=== PATIENT | male | born 1985 | race Caucasian/White ===

== ENCOUNTER 2025-01-28 15:49 | Outpatient (AMB) | payer OTHER, SELFPAY ==
--- NOTE | 2025-01-28 15:52 | A.OFFPC_ITS ---
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: No Accompanied by: Self / Same As Patient Allergies acetaminophen (From Tylenol PM) Allergy (Mild, Verified 01/28/25 16:08) heart race diphenhydramine (From Tylenol PM) Allergy (Mild, Verified 01/28/25 16:08) heart race Tobacco use date assessed: 01/28/25 Dental Screening Dental Screen Date: 01/28/25 Did you have a dental visit in the last 12 months?: Yes Did you have a dental problem in the last 6 months where you did not have access to dental care?: No Was dental information given to patient?: Patient has dentist HPI HPI Comments History of Present Illness Details History of Present Illness The patient is a 39-year-old male presenting for establishment of primary care and comprehensive health evaluation. Halitosis: - The patient reports persistent halitos is despite previous treatment for Helicobacter pylori infection, which initially resolved the issue but recurred months later. - The patient maintains good oral hygien e, including regular brushing and tongue cleaning. Gastritis: - The patient has a history of gastritis diagnosed via endoscopy, with previous treatment for Helicobacter pylori infection. - The patient reports using a coffee mad e from fungus to manage inflammation and mentions a noticeable increase in abdominal girth. History of Helicobacter pylori infection: - The patient was previously diagnosed w ith Helicobacter pylori infection and treated with antibiotics, which initially resolved the infection. - Follow-up testing indicated resolution of the infection, although symptoms of halitosis persisted. Review of Systems - Gastrointestinal: Reports persistent h alitosis and history of gastritis. Den ies abdominal pain or discomfort. - General: Denies history of diabetes, h ypertension, epilepsy, stroke, or heart attack. - Behavioral: Denies smoking or drug use . 10-point ROS reviewed and negative excep t as noted in HPI Past Medical History - History of Helicobacter pylori infecti on treated with antibiotics. - Diagnosed with gastritis via endoscopy . Health Maintenance - Preventative care: Comprehensive blood tests including CBC to evaluate overall health status. - Lifestyle: Engages in exercise occasio matthew and consumes a diet including peanuts and walnuts for cholesterol management. Physical Exam General: Well-appearing, in no acute distress. Vital signs: Within normal limits. HEENT: Normocephalic, atraumatic. PERRLA, EOMI. Conjunctiva clear, sclera anicteric. Oropharynx clear, mucous membranes moist. TMs intact bilaterally. Notable for halitosis. Neck: Supple, no lymphadenopathy, no thyromegaly, no JVD or carotid bruits. Cardiovascular: RRR, normal S1/S2, no murmurs, rubs, or gallops. Peripheral pulses 2+ and symmetric. No edema. Respiratory: Lungs clear to auscultation bilaterally, no wheezes, rales, or rhonchi. Normal effort. Abdomen: Soft, non-tender, non-distended. Normoactive bowel sounds. No hepatosplenomegaly, no masses. History of gastritis. MSK: Full range of motion, no joint swelling or deformity. Normal gait. Skin: Warm, dry, intact. No rashes, lesions, or pallor. Neuro: Alert and oriented x3. Cranial nerves II-XII intact. Strength 5/5 throughout. Sensation intact. Reflexes 2+ symmetric. Normal coordination and gait. Psych: Appropriate mood and affect. Normal judgment and insight. Plan 1. Halitosis - Plan to conduct comprehensive blood te sts to rule out underlying systemic causes. - Consider referral to a specialist if s ymptoms persist despite normal test results. 2. Gastritis - Plan to monitor symptoms and continue current dietary modifications. - Consider further gastrointestinal eval uation if symptoms worsen. 3. History Of Helicobacter Pylori Infect ion - No current treatment required as previ ous infection resolved. Discussion Notes I discussed with the patient the plan to conduct comprehensive blood tests to evaluate his overall health status. We also talked about the possibility of referring him to a specialist if his halitosis persists despite normal test results. I advised him to continue his current dietary modifications for gastritis and to seek further evaluation if symptoms worsen. Patient was informed and verbally consented to the use of an ambient scribe for clinic note documentation during this visit. Patient Instructions - Undergo comprehensive blood tests as o rdered. - Continue current dietary modifications to manage gastritis. - Follow up with a specialist if halitos is persists despite normal test results. [facility] Medical History (Updated 01/28/25 @ 16:35 by Gómez Linton MD) History of Helicobacter pylori infection Family History (Updated 01/28/25 @ 16:10 by Jose Manuel Espinal MA) Father No problems noted. Mother Colon cancer Social History (Updated 01/28/25 @ 16:11 by Jose Manuel Espinal MA) Housing: House Alcohol intake: current Alcohol intake frequency: does not drink Patient Tobacco Use Status: Never used Tobacco service: No Current occupational status: employed Cognitive needs: No Hearing needs: No Vision needs: Yes (rx glasses) Questionnaire PHQ-9 Over the last 2 weeks, how often have you been bothered by any of the following problems? 1. Little interest or pleasure in doing things: not at all 2. Feeling down, depressed, or hopeless: not at all 3. Trouble falling or staying asleep, or sleeping too much: not at all 4. Feeling tired or having little energy: not at all 5. Poor appetite or overeating: not at all 6. Feeling bad about yourself - or that you are a failure or have let yourself or your family down: not at all 7. Trouble concentrating on things, such as reading the newspaper or watching television: not at all 8. Moving or speaking so slowly that other people could have noticed. Or the opposite - being so fidgety or restless that you have been moving around a lot more than usual: not at all 9. Thoughts that you would be better off or of hurting yourself in some way: not at all Total score: 0 Source: Developed by Drs. Sher Valdez, Liv Ansari, Dharmesh Tinsley and colleagues, with an educational salas from [employer]. Thrive Questionnaire I am a: Patient What is your living situation today?: I have a steady place to live Within the past 12 months, did the food you bought not last and you didn't have the money to get more?: Never true Within the past 12 months, did you worry whether your food would run out before you got money to buy more?: Never true Do you have trouble paying for medicines?: No Do you have trouble getting transportation to medical appointments?: No Do you have trouble paying your heating and electricity bill?: Yes Do you have trouble taking care of your child, family member or friend?: No Are you currently unemployed and looking for a job?: No Are you interested in more education?: No Please select the resources that you would like help with: None Currently or been in a relationship where the following occur: No concerns reported THRIVE Score: 1 AUDIT C Alcohol Use Questionnaire (AUDIT-C) 1. How often do you have a drink containing alcohol?: Never Total Score: 0 CHRISTINA-7 AMB Questionnaire CHRISTINA-7 Feeling nervous, anxious, or on edge: 0 = Not at all Not being able to stop or control worryin = Not at all Worrying too much about different things: 0 = Not at all Trouble relaxin = Not at all Being so restless that it is hard to sit still: 0 = Not at all Becoming easily annoyed or irritable: 0 = Not at all Feeling afraid as if something awful might happen: 0 = Not at all Total CHRISTINA-7 score (0-4 normal; 5-9 mild; 10-14 moderate; 15-21 severe): 0 Source: Developed by Drs. Sher Valdez, Liv Ansari, Dharmesh Tinsley and colleagues, with an educational salas from [employer]. Physical exam (Primary Care) Vital Signs: Last Vital Signs Temp 98 F 01/28/25 16:06 Pulse 80 01/28/25 16:06 Resp 16 01/28/25 16:06 BP 121/76 01/28/25 16:06 Pulse Ox 97 01/28/25 16:06 Oxygen Delivery Method Room Air 01/28/25 16:06 BMI result Body Mass Index 25.5 Tobacco/Smoking Status: Tobacco use Status Tobacco use date assessed 01/28/25 01/28/25 15:59 Patient Tobacco Use Status Never used Tobacco 01/28/25 16:11 PHQ-9: PHQ-9 Score PHQ-9: Total score 0 01/28/25 16:13 Currently or been in a relationship where the following occur: No concerns reported Coding Level of Care Code New Pt Level 3 (99653) Diagnoses Encounter to establish care Z76.89 Encounter for screening, unspecified Z13.9 History of Helicobacter pylori infection Z86.19 Screening for diabetes mellitus Z13.1 Screening for hypertension Z13.6 Screening for depression Z13.31 Screening for lipoid disorders Z13.220 Screening for HIV (human immunodeficiency virus) Z11.4 Routine screening for STI (sexually transmitted infection) Z11.3 Halitosis R19.6 History of gastritis Z87.19 History of esophagogastroduodenoscopy (EGD) Z98.890 Assessment & Plan Assessment & Plan (1) Encounter to establish care: Code(s): Z76.89 - Persons encountering health services in other specified circumstances (2) Encounter for screening, unspecified: Code(s): Z13.9 - Encounter for screening, unspecified (3) History of Helicobacter pylori infection: Code(s): Z86.19 - Personal history of other infectious and parasitic diseases Category: Medical (4) Screening for diabetes mellitus: Code(s): Z13.1 - Encounter for screening for diabetes mellitus (5) Screening for hypertension: Code(s): Z13.6 - Encounter for screening for cardiovascular disorders (6) Screening for depression: Code(s): Z13.31 - Encounter for screening for depression (7) Screening for lipoid disorders: Code(s): Z13.220 - Encounter for screening for lipoid disorders (8) Screening for HIV (human immunodeficiency virus): Code(s): Z11.4 - Encounter for screening for human immunodeficiency virus [HIV] (9) Routine screening for STI (sexually transmitted infection): Code(s): Z11.3 - Encounter for screening for infections with a predominantly sexual mode of transmission (10) Halitosis: Code(s): R19.6 - Halitosis (11) History of gastritis: Code(s): Z87.19 - Personal history of other diseases of the digestive system (12) History of esophagogastroduodenoscopy (EGD): Code(s): Z98.890 - Other specified postprocedural states Plan Orders: Orders Comprehensive Met. Panel Today Z13.9 - Encounter for screening, unspecified, Z76.89 - Persons encountering health services in other specified circumstances Chlamydia Species Ab Panel Today Z13.9 - Encounter for screening, unspecified, Z76.89 - Persons encountering health services in other specified circumstances CT NG by PCR Urine Today Z13.9 - Encounter for screening, unspecified, Z76.89 - Persons encountering health services in other specified circumstances Hepatitis B Surface Antigen Today Z13.9 - Encounter for screening, unspecified, Z76.89 - Persons encountering health services in other specified circumstances HIV Ab/Ag Today Z13.9 - Encounter for screening, unspecified, Z76.89 - Persons encountering health services in other specified circumstances Lipid Panel Today Z13.9 - Encounter for screening, unspecified, Z76.89 - Persons encountering health services in other specified circumstances UA CC w/rflx Micro + Cult Today Z13.9 - Encounter for screening, unspecified, Z76.89 - Persons encountering health services in other specified circumstances Vitamin B12 and Folate Today Z13.9 - Encounter for screening, unspecified, Z76.89 - Persons encountering health services in other specified circumstances Vitamin D 1,25 dihydroxy Today Z13.9 - Encounter for screening, unspecified, Z76.89 - Persons encountering health services in other specified circumstances H pylori Ag Stool Today Z86.19 - Personal history of other infectious and parasitic diseases Complete Blood Count Auto Diff Today Z13.9 - Encounter for screening, unspecified, Z76.89 - Persons encountering health services in other specified circumstances Hemoglobin A1c Today Z13.9 - Encounter for screening, unspecified, Z76.89 - Persons encountering health services in other specified circumstances Hepatitis B Surface Antibody Today Z13.9 - Encounter for screening, unspecified, Z76.89 - Persons encountering health services in other specified circumstances Hepatitis C Antibody Today Z13.9 - Encounter for screening, unspecified, Z76.89 - Persons encountering health services in other specified circumstances Magnesium Today Z13.9 - Encounter for screening, unspecified, Z76.89 - Persons encountering health services in other specified circumstances Syphilis Screen Today Z13.9 - Encounter for screening, unspecified, Z76.89 - Persons encountering health services in other specified circumstances
[2025-01-28 16:06] VITALS: BP 121/76; PULSE 80; RESP 16; TEMP 36.6; O2SAT 97; BMI 25.5
--- OUTSIDE RECORDS SUMMARY | 2025-01-28 16:59 | XMS_ITS | Clinical Summary ---
Author Organization [facility] Address [address] [place] [id number] Care Team Providers Care Motor Patrol Operator Name Role Phone Kristyn Larry STATISTICAL ANALYST Primary Care Provider [phone] Allergies Active Allergy Reactions Criticality Noted Date Comments Oxycodone-Acetaminophen 08/13/2020 Heart races. Medications cetirizine (ZyrTEC) 10 mg tabletIndications:S easonal allergies Take 1 tablet (10 mg total) by mouth 1 (one) time each day. 30 tablet 2 1 Active omeprazole (PriLOSEC) [address] capsule Take 20 mg by mouth 1 (one) time each day Do not crush or chew. Active clonazePAM (KlonoPIN) 0.5 mg tabletIndications:H istory of claustrophobia Take 1 PO before flying 2 tablet 2 Active Active Problems Problem Noted Date Diagnosed Date Dyslipidemia 03/22/2022 Chronic upper abdominal pain 02/04/2021 GERD (gastroesophageal reflux disease) History of claustrophobia Resolved Problems Problem Noted Date Diagnosed Date Resolved Date Acute right-sided back pain 09/03/2020 06/01/2022 LUQ abdominal pain 07/30/2020 3 Family History Medical History Relation Comments No Known Problems Brother Alcohol abuse Father No Known Problems Father's Brother No Known Problems Father's Sister Cancer Maternal Grandmother Diabetes Maternal Grandmother Stroke Maternal Grandmother Cancer Mother GI- pt will find out more details Hyperlipidemia Mother Hypertension Mother No Known Problems Mother's Brother No Known Problems Mother's Sister No Known Problems Sister No Known Problems Son Relation Status Comments Brother Alive Father Father's Brother Alive Father's Sister Alive Maternal Grandfather Alive Maternal Grandmother Mother Alive Mother's Brother Alive Mother's Sister Alive Paternal Grandfather Alive Paternal Grandmother Alive Sister Alive 3 sisters; alive and well Son Other 3 sons Alive & w ell. Social History Tobacco Use Types Packs/Day Years Used Date Smoking Tobacco: Never Smokeless Tobacco: Never Alcohol Use Standard Drinks/Week Comments Never 0 (1 standard drink = 0.6 oz pur e alcohol) AUDIT-C Answer Date Recorded Q1: How often do you have a drink containing alc ohol? Never 09/03/2020 Average Number of Drinks Not on file 021 Frequency of Binge Drinking Not on file 09/2020 PHQ-2 Answer Date Recorded Depression Risk (PHQ2) Score 0 PRAPARE - Transportation Answer Date Re corded In the past 12 months, has l ack of transportation kept you from medical appointments or from getting medications? No 09/2020 In the past 12 months, has l ack of transportation kept you from meetings, work, or from getting things needed for daily living? No 09/03/2020 Sex and Gender Information Value Date Recorded Sex Assigned at Not on file Legal Sex Male 9:31 AM [facility] Gender Identity Not on file Sexual Orientation Not on file Occupation Industry Job Start Date Job End Date Not on file Not on file Not on file Not on file Last Filed Vital Signs Vital Sign Reading Time Taken Comments Blood Pressure 138/87 06/01/2022 7:06 AM EST Pulse 69 06/01/2022 7:06 AM EST Temperature 37.1 C (98.7 F) 06/01/2022 7:06 AM EST Respiratory Rate 16 05/19/2021 3:48 PM EST Oxygen Saturation 99% 06/01/2022 7:06 AM EST Inhaled Oxygen Concentration - - Weight 77.9 kg (171 lb 12.8 oz) 06/01/2022 7:06 AM EST Height 175.3 cm (5' 9 ) 01/18/2020 8:43 AM EDT Body Mass Index 25.37 01/18/2020 8:43 AM EDT Plan of Treatment Health Maintenance Due Date Last Done Comments PHQ-9 Depression Screen 1999 CHRISTINA-7 Anxiety Screen 2005 DTaP,Tdap,and Td Vaccines (1 - Tdap) 2006 Annual Preventive Exam 06/01/2023 3, 01/18/2020, 01/18/2020 COVID-19 Vaccine (1 - 2023-2 5 season) 2024 Influenza Vaccine (#1) 2024 RSV Vaccine (SCDM) (1 - 1-do se 75+ series) 2062 Hepatitis C Screening Completed 02/04/2021 Procedures Procedure Name Priority Date/Time Associated Diagnosis Comments HEPATITIS PANEL, ACUTE Routine 02/04/2021 4:31 PM EDT Chronic upper abdominal pain LUQ abdominal pain from Last 3 Months or Most Recently Relevant to Health Maintenance Results * Hepatitis panel, acute (02/04/2021 4:31 PM EDT) Hep A Ab, IgM Negative Negative [facility] HBsAg Screen Negative Negative [facility] Hep B Core Ab, IgM Negative Negative [facility] Hep C Virus Ab 0.1 0.0 - 0.9 s/co ratio [facility] Comment: Negative: < 0.8 Indeterminate: 0.8 - 0.9 Positive: > 0.9 The CDC recommends that a positive HCV antibody result be followed up with a HCV Nucleic Acid Amplification test (738014). Blood (Blood, Venous) 02/04/2021 4:31 PM EDT 02/04/2021 Comment:BLOOD, VENOUS Narrative [facility] - 02/05/2021 10:11 AM EDT Performed at: 01 - [facility] [address] [id number] Booking Officer: Bhakti Gomez MD, Phone: [phone] us Fauzia Vera NP LAB BLOOD ORDERABLES Final Res ult [facility] from Last 3 Months or Most Recently Relevant to Health Maintenance Insurance [employer] Care Teams Motor Patrol Operator Relationship Specialty Start Date End Date Kristyn Larry NP [address] [place] [id number] PCP - General Family Medicine 05/19/21
--- OUTSIDE RECORDS SUMMARY | 2025-01-28 16:59 | XMS_ITS ---
Author Name [facility] Organization Unknown Care Team Organization Name Specialty Phone Email Start Date End Da te [facility] Jen Peñaloza Primary Care 03/08/202211/29
--- OUTSIDE RECORDS SUMMARY | 2025-01-28 16:59 | XMS_ITS | Clinical Summary ---
Author Organization [facility] Address [address] [place] [id number] Care Team Providers Care Bilingual Speech Language Pathologist Name Role Phone Kristyn Larry Meenu BECK Primary Care Provider [phone] Social History Tobacco Use Types Packs/Day Years Used Date Smoking Tobacco: Never Assessed Sex and Gender Information Value Date Recorded Sex Assigned at Not on file Legal Sex Male 9:14 AM EST Gender Identity Not on file Sexual Orientation Not on file Plan of Treatment Health Maintenance Due Date Last Done Comments DTaP,Tdap,and Td Vaccines (1 - Tdap) 2006 Hepatitis B Vaccines (1 of 3 - 19+ 3-dose series) 2006 Cholesterol Screening (Lipid Panel) 04/03/2022 HIV Screening 04/03/2022 Hepatitis C Screening 04/03/2022 Social Influencers of Health Screening 04/03/2022 Depression Screening 05/01/2024 COVID-19 Vaccine ( - 2023-2 5 season) 2024 Influenza Vaccine (#1) 2024 HIB Vaccines Aged Out No longer eligi ble based on patient's age to complete this topic HPV Vaccines Aged Out No longer eligi ble based on patient's age to complete this topic Hepatitis A Vaccines Aged Out No long er eligible based on patient's age to complete this topic IPV Vaccines Aged Out No longer eligi ble based on patient's age to complete this topic MMR Vaccines Aged Out No longer eligi ble based on patient's age to complete this topic Meningococcal ACWY Vaccine Aged Out N o longer eligible based on patient's age to complete this topic Meningococcal B Vaccine Aged Out No l onger eligible based on patient's age to complete this topic Pneumococcal Vaccine: Pediat rics (0 to 5 Years) and At-Risk Patients (6 to 49 Years) Aged Out No longer eligible b ased on patient's age to complete this topic RSV Immunization Patients Un gianna 20 months Aged Out No longer eligible b ased on patient's age to complete this topic Varicella Vaccines Aged Out No longer eligible based on patient's age to complete this topic Care Teams Bilingual Speech Language Pathologist Relationship Specialty Start Date End Date Kristyn Larry APN [address] [place] [id number] PCP - General 05/24/21
== END 2025-01-28 16:42 | disposition home or self-care (01) ==
LOC: HO.HMCFMS 15:49
PROVIDERS: Visit Provider Student in an Organized Health Care Education/Training Program
DX: Z00.00 Encounter for general adult medical examination without abnormal findings (principal); R19.6 Halitosis; Z86.19 Personal history of other infectious and parasitic diseases; Z11.3 Encounter for screening for infections with a predominantly sexual mode of transmission

== ENCOUNTER 2025-01-29 11:36 | Outpatient (REF) | payer OTHER, SELFPAY ==
--- OUTSIDE RECORDS SUMMARY | 2025-01-29 13:13 | XMS_ITS | Clinical Summary ---
Author Organization [facility] Address [address] [place] [id number] Care Team Providers Care Testing Machine Operator Name Role Phone KendyKristyn Meenu BECK Primary Care Provider [phone] Social History Tobacco Use Types Packs/Day Years [...] of 3 - 19+ 3-dose series) 2006 HPV Vaccines (1 - 3-dose SCD M series) 2014 Cholesterol Screening (Lipid Panel) 04/03/2022 HIV Screening 04/03/2022 Hepatitis C Screening 04/03/2022 Social Influencers of Health Screening 04/03/2022 Depression Screening 05/01/2024 COVID-19 Vaccine (1 - 2023-2 5 season) 2024 Influenza Vaccine (#1) 2024 RSV Immunization Adult Patie nts (1 - 1-dose 75+ series) 2062 HIB Vaccines Aged Out No longer eligi [...] age to complete this topic Care Teams Testing Machine Operator Relationship Specialty Start Date End Date Kristyn Larry APN [address] [place], [place] [phone] PCP - General 05/24/21
--- OUTSIDE RECORDS SUMMARY | 2025-01-29 13:13 | XMS_ITS | Clinical Summary ---
Author Organization [facility] Address [address] [place] [address] Care Team Providers Care Professor Of Philosophy Name Role Phone Kristyn Larry PUTTYING AND CALKING SUPERVISOR Primary Care Provider [phone]- [phone] Allergies Active Allergy Reactions Criticality Noted Date [...] on file Legal Sex Male 9:31 AM [facility] Gender Identity Not on file Sexual Orientation [...] with a HCV Nucleic Acid Amplification test (279540). Blood (Blood, Venous) 02/04/2021 4:31 PM EDT 02/04/2021 Comment:BLOOD, VENOUS Narrative [facility] - 02/05/2021 10:11 AM EDT Performed at: 01 - [facility] [address] [id number] Assembly Adjuster: Bhakti Gomez MD, Phone: [phone] us Fauzia Vera NP LAB BLOOD ORDERABLES Final Res ult [facility] from Last 3 Months or Most Recently Relevant to Health Maintenance Insurance [employer] Care Teams Professor Of Philosophy Relationship Specialty Start Date End Date Kristyn Larry NP [address] [place] [phone] PCP - General Family Medicine 05/19/21
[2025-01-29 18:12] LABS: MANUAL DIFF FLAG NO
[2025-01-29 18:19] LABS: Hematocrit 43.0 % (42.0-52.0); Hemoglobin 14.2 g/dl (14.0-18.0); Imm Gran Abs Auto 0.02 X10*3/uL (0.00-0.03); Imm Gran Pct Auto 0.3 % (0.0-0.4); Lymphocytes Absolute Auto 2.1 X10*3/uL (1.2-4.9); Mean Corpuscular HGB Conc 33.0 g/dl (31.0-36.0); Mean Corpuscular Hemoglobin 28.0 pg (27.0-33.0); Mean Corpuscular Volume 84.8 fL (80.0-98.0); NRBC Abs Auto 0.000 X10*3/uL (0.0-0.012); NRBC Pct Auto 0.0 /100WBC (0.0-0.2); Platelet Count 202 X10*3/uL (160-400); Red Blood Count 5.07 X10*6/uL (4.60-5.80); White Blood Count 6.3 X10*3/uL (4.8-10.8)
[2025-01-29 18:21] LABS: Appearance Urine Clear; Glucose Urine UA Negative (Negative); PH 6.0 (5.0-9.0); Specific Gravity - Urine 1.020 (1.005-1.025)
[2025-01-29 18:39] LABS: Alanine Aminotransferase 29 U/L (0-40); Albumin Level 4.9 g/dL (3.5-5.0); Alkaline Phosphatase 57 U/L (39-117); Anion Gap 13 (12-20); Aspartate Amino Transferase 41 U/L (5-37); Blood Urea Nitrogen 14 mg/dL (9-16); Calcium 9.5 mg/dL (8.4-10.2); Carbon Dioxide 25 mmol/L (22-29); Chloride 106 mmol/L (96-108); Cholesterol 203 mg/dL (<200); Estimated Glomerular Filt Rate > 60; HDL Cholesterol 36 mg/dL (>40); Magnesium 2.2 mg/dL (1.6-2.6); Potassium 4.2 mmol/L (3.3-5.1); Sodium 140 mmol/L (135-145); Total Protein 7.8 g/dL (6.5-8.0); Triglycerides 103 mg/dL (<150)
[2025-01-29 19:03] LABS: Folate 14.0 ng/mL (> or = 4.0); Vitamin B12 740 pg/mL (200-900)
[2025-01-30 04:32] LABS: Syphilis Screen Nonreactive (Nonreactive)
[2025-01-30 05:16] LABS: HBS Num1 > 1000.00 mIU/mL (0-7.99); HBsAGNum1 0.43 S/CO (0.00-0.99); HIV Num 1 0.06 S/CO (0.00-0.99); Hepatitis B Surface Antigen Negative (Negative); ~HepC Num1 0.09 S/CO (0.00-0.79); ~Hepatitis B Surface Antibody REACTIVE (Nonreactive); ~Hepatitis C Antibody Nonreactive (Nonreactive)
[2025-01-30 05:51] LABS: CT PCR Urine NOT DETECTED (Not Detect.); NG PCR Urine NOT DETECTED (Not Detect.)
[2025-02-01 12:32] LABS: Chlamydia Trachomatis IgA <1:16 titer (<1:16)
[2025-02-03 05:09] LABS: VITAMIN D (1,25 OH) D3 53 pg/mL; Vit D (1,25-Dihydroxy) Total 53 pg/mL (18-72); Vitamin D (1,25 OH) D2 <8 pg/mL
== END 2025-01-29 11:37 | disposition home or self-care (01) ==
LOC: HO.HKASLDS 11:36
PROVIDERS: PCP Student in an Organized Health Care Education/Training Program; Visit Provider Student in an Organized Health Care Education/Training Program
DX: Z11.59 Encounter for screening for other viral diseases (principal); Z13.6 Encounter for screening for cardiovascular disorders; Z11.4 Encounter for screening for human immunodeficiency virus [HIV]; Z01.84 Encounter for antibody response examination; Z13.1 Encounter for screening for diabetes mellitus; Z76.89 Persons encountering health services in other specified circumstances
CPT/HCPCS: 80053; 80061; 81003; 82607; 82652; 82746; 83036; 83735; 85025; 86631; 86632; 86706; 86780; 86803; 87340; 87389; 87491; 87591

== ENCOUNTER 2025-02-11 15:38 | Outpatient (AMB) | payer OTHER, SELFPAY ==
--- NOTE | 2025-02-11 15:44 | MHC.PC.OV ---
Vital Signs 02/11/25 15:50 Height 5 ft 8.5 in Weight 170 lb BMI 25.5 BP 128/82 Blood Pressure Location Lt brachial Position Sitting Respiration 16 Pulse 77 Pulse Source Pulse Oximeter Temp 97.9 F Temp Source Oral Pulse Oximetry (%) 97 Oxygen Delivery Method Room Air Intake Visit Reasons: 2 wk f/u Digital Print Operator Required: No Accompanied by: Self / Same As Patient Allergies acetaminophen (From Tylenol PM) Allergy (Mild, Verified 02/11/25 15:45) heart race diphenhydramine (From Tylenol PM) Allergy (Mild, Verified 02/11/25 15:45) heart race Tobacco use date assessed: 02/11/25 Dental Screening Dental Screen Date: 02/11/25 Did you have a dental visit in the last 12 months?: Yes Did you have a dental problem in the last 6 months where you did not have access to dental care?: No Was dental information given to patient?: Patient has dentist HPI HPI Comments History of Present Illness Details Consent Patient was informed and verbally consented to the use of an ambient scribe for clinic note documentation during this visit. History of Present Illness The patient is a 39-year-old male presenting with a review of laboratory results and dietary concerns. Hypercholesterolemia: - The patient's total cholesterol is slightly elevated at 203 mg/dL, with LDL cholesterol at 147 mg/dL and HDL cholesterol at 36 mg/dL. - The patient consumes a high amount of cheese, which may contribute to the elevated cholesterol levels. Elevated AST: - The patient's AST level is slightly elevated at 41 U/L, above the normal range of 5 to 37 U/L. - This elevation may be related to the patient's cholesterol levels. Lactose Intolerance: - The patient reports symptoms of lactose intolerance, including abdominal discomfort and bloating after consuming dairy products. - The patient has reduced milk consumption and is considering lactase supplements. Review of Systems - Gastrointestinal: Reports abdominal discomfort and bloating after dairy consumption. Denies other gastrointestinal symptoms. 10-point ROS reviewed and negative except as noted in HPI Past Medical History Health Maintenance - Referral to a registered nurse maternal child for dietary counseling. Physical Exam General: Well-appearing, in no acute distress. Vital signs: Within normal limits. HEENT: Normocephalic, atraumatic. PERRLA, EOMI. Conjunctiva clear, sclera anicteric. Oropharynx clear, mucous membranes moist. TMs intact bilaterally. Neck: Supple, no lymphadenopathy, no thyromegaly, no JVD or carotid bruits. Cardiovascular: RRR, normal S1/S2, no murmurs, rubs, or gallops. Peripheral pulses 2+ and symmetric. No edema. Respiratory: Lungs clear to auscultation bilaterally, no wheezes, rales, or rhonchi. Normal effort. Abdomen: Soft, non-tender, non-distended. Normoactive bowel sounds. No hepatosplenomegaly, no masses. MSK: Full range of motion, no joint swelling or deformity. Normal gait. Skin: Warm, dry, intact. No rashes, lesions, or pallor. Neuro: Alert and oriented x3. Cranial nerves II-XII intact. Strength 5/5 throughout. Sensation intact. Reflexes 2+ symmetric. Normal coordination and gait. Psych: Appropriate mood and affect. Normal judgment and insight. Plan 1. Hypercholesterolemia - The plan includes dietary modifications, specifically reducing cheese intake, and a referral to a registered nurse maternal child for further dietary counseling. 2. Elevated Ast - Monitoring of liver function tests is recommended, with dietary changes to address cholesterol levels potentially impacting AST levels. 3. Lactose Intolerance - The patient is advised to avoid dairy products and consider lactase supplements to manage symptoms. Discussion Notes I discussed the patient's slightly elevated cholesterol and AST levels, emphasizing the importance of dietary changes, particularly reducing cheese intake. I recommended a referral to a registered nurse maternal child for personalized dietary advice and discussed lactose intolerance management with potential lactase supplementation. Patient Instructions - Reduce cheese intake to help lower cholesterol levels. - Follow up with the registered nurse maternal child for dietary advice. - Avoid dairy products and consider lactase supplements if consuming dairy. Medical Decision Making The patient's laboratory results indicate hypercholesterolemia and slightly elevated AST levels, likely related to dietary habits, particularly high cheese consumption. The decision to refer the patient to a tool setter aims to address these issues through dietary modifications, while monitoring liver function tests to assess any changes in AST levels. Total time spent caring for the patient today was 30 minutes. This includes time spent before the visit reviewing the chart, time spent documenting, and time spent reviewing laboratory results, diagnostic imaging, medications, performing a medically necessary evaluation, counseling on diagnoses, care coordination, ordering appropriate tests, ordering appropriate medications, review of tests performed by other providers, reporting test results with the patient, communication with other healthcare providers. [facility] Medical History (Updated 02/11/25 @ 16:09 by Gómez Linton MD) Hyperlipidemia History of Helicobacter pylori infection Family History Father No problems noted. Mother Colon cancer Social History Housing: House Alcohol intake: current Alcohol intake frequency: does not drink Patient Tobacco Use Status: Never used Tobacco service: No Current occupational status: employed Cognitive needs: No Hearing needs: No Vision needs: Yes (rx glasses) Questionnaire PHQ-9 Over the last 2 weeks, how often have you been bothered by any of the following problems? 1. Little interest or pleasure in doing things: not at all 2. Feeling down, depressed, or hopeless: not at all 3. Trouble falling or staying asleep, or sleeping too much: not at all 4. Feeling tired or having little energy: not at all 5. Poor appetite or overeating: not at all 6. Feeling bad about yourself - or that you are a failure or have let yourself or your family down: not at all 7. Trouble concentrating on things, such as reading the newspaper or watching television: not at all 8. Moving or speaking so slowly that other people could have noticed. Or the opposite - being so fidgety or restless that you have been moving around a lot more than usual: not at all 9. Thoughts that you would be better off or of hurting yourself in some way: not at all Total score: 0 Source: Developed by Drs. Sher Valdez, Liv Ansari, Dharmesh Tinsley and colleagues, with an educational salas from [employer]. Thrive Questionnaire Date Thrive assessed: 02/11/25 I am a: Patient What is your living situation today?: I have a steady place to live Within the past 12 months, did the food you bought not last and you didn't have the money to get more?: Never true Within the past 12 months, did you worry whether your food would run out before you got money to buy more?: Never true Do you have trouble paying for medicines?: No Do you have trouble getting transportation to medical appointments?: No Do you have trouble paying your heating and electricity bill?: Yes Do you have trouble taking care of your child, family member or friend?: No Do you have trouble with day-to-day activities such as bathing, preparing meals, shopping, managing finances, etc.?: No Are you currently unemployed and looking for a job?: No Are you interested in more education?: No Please select the resources that you would like help with: None Currently or been in a relationship where the following occur: No concerns reported THRIVE Score: 1 AUDIT C Alcohol Use Questionnaire (AUDIT-C) 1. How often do you have a drink containing alcohol?: Never 3. How often do you have six or more drinks on one occasion?: Never Total Score: 0 CHRISTINA-7 AMB Questionnaire CHRISTINA-7 Date CHRISTINA - 7 assessed: 02/11/25 Feeling nervous, anxious, or on edge: 0 = Not at all Not being able to stop or control worryin = Not at all Worrying too much about different things: 0 = Not at all Trouble relaxin = Not at all Being so restless that it is hard to sit still: 0 = Not at all Becoming easily annoyed or irritable: 0 = Not at all Feeling afraid as if something awful might happen: 0 = Not at all Total CHRISTINA-7 score (0-4 normal; 5-9 mild; 10-14 moderate; 15-21 severe): 0 Source: Developed by Drs. Sher Valdez, Liv Ansari, Dharmesh Tinsley and colleagues, with an educational salas from [employer]. Physical exam (Primary Care) Vital Signs: Last Vital Signs Temp 97.9 F 02/11/25 15:50 Pulse 77 02/11/25 15:50 Resp 16 02/11/25 15:50 BP 128/82 02/11/25 15:50 Pulse Ox 97 02/11/25 15:50 Oxygen Delivery Method Room Air 02/11/25 15:50 BMI result Body Mass Index 25.5 Tobacco/Smoking Status: Tobacco use Status Tobacco use date assessed 02/11/25 02/11/25 15:53 Patient Tobacco Use Status Never used Tobacco 02/11/25 15:45 PHQ-9: PHQ-9 Score PHQ-9: Total score 0 02/11/25 15:53 Thrive Assessment: Date of Thrive Assessment Date Thrive assessed 02/11/25 02/11/25 15:53 Currently or been in a relationship where the following occur: No concerns reported Coding Level of Care Code Est Pt Level 4 (23555) Diagnoses Hyperlipidemia E78.5 Elevated liver enzymes R74.8 Lactose intolerance E73.9 Assessment & Plan Assessment & Plan (1) Hyperlipidemia: Code(s): E78.5 - Hyperlipidemia, unspecified Category: Medical (2) Elevated liver enzymes: Code(s): R74.8 - Abnormal levels of other serum enzymes (3) Lactose intolerance: Code(s): E73.9 - Lactose intolerance, unspecified Plan Orders: Referrals Nurse Navigator Referral E78.5 - Hyperlipidemia, unspecified
[2025-02-11 15:50] VITALS: BP 128/82; PULSE 77; RESP 16; TEMP 36.6; O2SAT 97; BMI 25.5
--- OUTSIDE RECORDS SUMMARY | 2025-02-11 18:20 | XMS_ITS | Clinical Summary ---
Author Organization [facility] ity Address [id number] [place] [id number] Care Team Providers Care Ager Operator Name Role Phone Kristyn Larry Meenu BECK Primary Care Provider [phone] Social History Tobacco Use Types Packs/Day Years [...] age to complete this topic Care Teams Ager Operator Relationship Specialty Start Date End Date Kristyn Larry APN [address] [place], [place] [id number] PCP - General 05/24/21
--- OUTSIDE RECORDS SUMMARY | 2025-02-11 18:20 | XMS_ITS | Clinical Summary ---
Author Organization [facility] Address [address] [place] [id number] Care Team Providers Care Insemination Worker Name Role Phone Kristyn Larry TIRE DUSTER Primary Care Provider [phone] Allergies Active Allergy Reactions Criticality Noted Date [...] on file Legal Sex Male 9:31 AM [facility] Gender Identity Not on file [...] with a HCV Nucleic Acid Amplification test ([id number]). Blood (Blood, Venous) 02/04/2021 4:31 PM EDT 02/04/2021 Comment:BLOOD, VENOUS Narrative [facility] - 02/05/2021 10:11 AM EDT Performed at: 01 - [facility] [address] [id number] Data Virtualization Consultant: Bhakti Gomez MD, Phone: [phone] us Fauzia Vera NP LAB BLOOD ORDERABLES Final Res ult [facility] from Last 3 Months or Most Recently Relevant to Health Maintenance Insurance [employer] Care Teams Insemination Worker Relationship Specialty Start Date End Date Kristyn Larry NP [address] [place] [phone] PCP - General Family Medicine 05/19/21
== END 2025-02-11 16:17 | disposition home or self-care (01) ==
LOC: HO.HMCFMS 15:38
PROVIDERS: PCP Student in an Organized Health Care Education/Training Program; Visit Provider Student in an Organized Health Care Education/Training Program
DX: E78.5 Hyperlipidemia, unspecified (principal); R74.8 Abnormal levels of other serum enzymes; E73.9 Lactose intolerance, unspecified